=== PATIENT | male | born 1990 | race Caucasian/White ===

== ENCOUNTER 2019-08-03 14:28 | Emergency (ER) | payer BC ==
[2019-08-03] MEDS ORDERED: HYDROmorphone 0.5 MG/0.5 ML Syringe IM ONE (15:11)
--- NOTE | 2019-08-03 15:21 | EDM.PDOC ---
ED HPI GENERAL MEDICAL PROBLEM - General Chief Complaint: Upper Extremity Injury/Pain Stated Complaint: FINGER INJURY Time Seen by Provider: 08/03/19 14:58 Source of Information: Reports: Patient, RN Notes Reviewed History Limitations: Reports: No Limitations - History of Present Illness INITIAL COMMENTS - FREE TEXT/NARRATIVE: Patient is a 28-year-old male presents to the ED for evaluation of a possible dislocated right ring finger. The patient states that shortly prior to arrival to the ED he was playing football with some buddies when he went to catch the football and he felt as if he just jammed his finger but when he removed his glove he found that his finger was dislocated to the side. He is not had any sort of injury like this ever. He notes that he is up-to-date with his tetanus , he notes that he is left-hand dominant. He did not take any sort of pain medications for this before coming to the ER he drove directly to the ER for management. He states that he can feel touch and sensation past the point of the injury. The distal fingertip is still pink. Right Finger-Ring Pain Score (Numeric/FACES): 5 - Related Data Allergies Allergy/AdvReac Type Severity Reaction Status Date / Time No Known Allergies Allergy Verified 08/03/19 14:59 Home Meds: Home Meds . [No Known Home Meds] 08/03/19 [History] Past Medical History - Past Health History Medical/Surgical History: Denies Medical/Surgical History Social & Family History - Tobacco Use Smoking Status *Q: Never Smoker - Caffeine Use Caffeine Use: Reports: Coffee, Energy Drinks, Soda, Tea - Recreational Drug Use Recreational Drug Use: No Review of Systems - Review of Systems Review Of Systems: ROS reveals no pertinent complaints other than HPI. Musculoskeletal: Reports: No Symptoms, Hand Pain (R PIP of 4th digit), Joint Pain (R PIP of ring finger (4th digit)). Denies: Joint Swelling ED EXAM, GENERAL - Physical Exam Exam: See Below Exam Limited By: No Limitations General Appearance: Alert, WD/WN, No Apparent Distress Respiratory/Chest: No Respiratory Distress, Lungs Clear, Normal Breath Sounds, No Accessory Muscle Use, Chest Non-Tender Cardiovascular: Normal Peripheral Pulses, Regular Rate, Rhythm, No Murmur Peripheral Pulses: 3+: Radial (L), Radial (R) Extremities: Normal Capillary Refill, Other (R 4th digit PIP, appears to displaced medially. Neurovascularly intact distal to injury.) Neurological: Alert, Oriented, No Motor/Sensory Deficits Psychiatric: Normal Affect, Normal Mood Skin Exam: Warm, Dry, Intact, Normal Color ED TRAUMA EXTREMITY PROCEDURES - Joint Reduction Site: Finger (R) (4th digit) Sedation: Other (0.5mg Diluadid) Pre-Procedure NV Status: Normal Post-Procedure NV Status: Normal Technique: Traction/Counter Traction Number of Attempts: 1 Post-Reduction Imaging: Completely Reduced, No Fracture Seen Joint Reduction Complications: No Course - Vital Signs Last Recorded V/S: Last Vital Signs Temp 98.8 F 08/03/19 14:57 Pulse 91 08/03/19 14:57 Resp 20 08/03/19 14:57 BP 117/73 08/03/19 14:57 Pulse Ox 97 08/03/19 14:57 - Orders/Labs/Meds Orders: Active Orders 24 hr Category Date Time Status Fingers Fourth Digit Rt F8 [CR] Stat Exams 08/03/19 15:11 Ordered Fingers Fourth Digit Rt F8 [CR] Stat Exams 08/03/19 16:11 Ordered Meds: Medications Discontinued Medications Generic Name Dose Route Start Last Admin Trade Name Freq PRN Reason Stop Dose Admin Hydromorphone HCl 0.5 mg 08/03/19 15:11 08/03/19 15:27 Dilaudid IM 08/03/19 15:12 0.5 mg ONETIME ONE Administration - Re-Assessments/Exams Free Text/Narrative Re-Assessment/Exam: 08/03/19 15:19 Patient presents to the ED for the evaluation of a possible dislocated finger. We'll obtain x-rays to make sure there is no fracture, did order 0.5 mg Dilaudid for pain relief in anticipation that we will have to reduce the finger back into its joint space. X-ray films will be obtained after the finger has been successfully reduced. The finger will be splinted with an aluminum foam type splint after reduction. 08/03/19 16:13 X-rays are done, and demonstrate a dislocation of the fourth digit at the PIP joint, this has ulnar displacement. No fractures were made apparent on the initial x-ray. Postreduction films have been ordered, the joint was reduced without much difficulty. Patient tolerated the procedure well. 08/03/19 16:47 Patient's postreduction films appear within normal limits and the joint is within good alignment and back in place. We'll splint the patient and discharge him home with general recommendations. Departure - Departure Time of Disposition: 16:14 Disposition: Home, Self-Care 01 Condition: Fair Clinical Impression: Dislocation closed, finger Qualifiers: Encounter type: initial encounter Qualified Code(s): S63.259A - Unspecified dislocation of unspecified finger, initial encounter - Discharge Information *PRESCRIPTION DRUG MONITORING PROGRAM REVIEWED*: No *COPY OF PRESCRIPTION DRUG MONITORING REPORT IN PATIENT ARI: No Instructions: Finger or Thumb Dislocation, [id number] Referrals: PCP,None [Primary Care Provider] - Forms: ED Department Discharge Additional Instructions: You have been evaluated in the ED for your dislocated right ring finger. This was successfully reduced and put back into its proper joint space. Please use ice as tolerated to the affected area the next few days. You may take Tylenol 500 mg or ibuprofen 600mg q6 hrs for pain relief. Please do so until you have a tolerable level of pain with activity. Do not exceed 4000mg tylenol, Do not exceed 3200mg ibuprofen in a 24 hour time period. Please call Ortho for follow-up and further evaluation Dr. Kirk is our orthopedic surgeon, his office number is [phone]. Please call and set up an appointment as soon as possible for further management. Recommend that you follow up within the next week to make sure everything is returning back to normal. You will need to keep the splint in place for at least 3-5 days, and then you should marco antonio tape the finger to the pinky to make sure that it still heals properly. Please return to ED if your symptoms should change or worsen. - My Orders Last 24 Hours: My Active Orders 08/03/19 15:11 Fingers Fourth Digit Rt F8 [CR] Stat 08/03/19 16:11 Fingers Fourth Digit Rt F8 [CR] Stat - Assessment/Plan Last 24 Hours: My Active Orders 08/03/19 15:11 Fingers Fourth Digit Rt F8 [CR] Stat 08/03/19 16:11 Fingers Fourth Digit Rt F8 [CR] Stat
--- NOTE | 2019-08-05 10:11 | CR ---
Right 4th finger: Four views of the right 4th finger were obtained. Comparison: No previous finger exam. Dislocated PIP joint is noted. No discrete fracture or other bony abnormality is seen. Pressure: 1. Dislocated PIP joint of the right 4th finger. Diagnostic code #3
--- NOTE | 2019-08-05 14:12 | CR ---
Right 4th finger: Three views of the right 4th finger were obtained. Comparison: Previous 4th finger study performed earlier on the same day (3:11 PM). Previous dislocation involving the PIP joint shows evidence of reduction. No definite fracture is seen. Soft tissue swelling is present. Impression: 1. Previous dislocation has been reduced. Diagnostic code #2
== END 2019-08-03 17:00 | disposition home or self-care (01) ==
LOC: JD.ED 14:28
DX: S63.284A Dislocation of proximal interphalangeal joint of right ring finger, initial encounter (principal); W20.8XXA Other cause of strike by thrown, projected or falling object, initial encounter; Y93.61 Activity, american tackle football
CPT/HCPCS: 26770; 73140; 96372; 99283; J1170; 26775